=== PATIENT | female | born 1965 | race Caucasian/White ===

== ENCOUNTER 2022-06-18 13:01 | Inpatient (IN) ==
[2022-06-18 14:42] LABS: Basophils # (auto) 0.03 K/uL (0-0.2); Basophils % (auto) 0.3 %; Eosinophils # (auto) 0.16 K/uL (0-0.50); Eosinophils % (auto) 1.6 %; Hematocrit (blood only) 41.7 % (34.1-44.9); Immature Granulocytes # (auto) 0.03 K/uL (0.00-0.02); Immature Granulocytes % (auto) 0.3 %; Lymphocytes # (auto) 1.53 K/uL (1.2-3.4); Lymphocytes % (auto) 15.1 %; Mean Corpuscular Hemoglobin 31.4 pg (25.0-34.0); Mean Corpuscular Hgb Conc 33.6 g/dL (32.0-36.0); Mean Corpuscular Volume 93.5 fL (80.0-100.0); Mean Platelet Volume 10.1 fL (9.4-12.3); Monocytes # (auto) 0.88 K/uL (0.24-0.82); Monocytes % (auto) 8.7 %; Platelet Count 286 K/uL (130-400); RDW Coefficient of Variation 12.4 % (11.5-14.5); RDW Standard Deviation 42.8 fL (36.4-46.3); Red Blood Count 4.46 M/uL (3.93-5.22); White Blood Count 10.13 K/ul (4.8-10.8)
[2022-06-18 14:54] LABS: Appearance Urine Clear (Clear); Bacteria Urine Automated Negative (Negative); Bilirubin Urine Negative (Negative); Blood Urine Negative (Negative); Color Urine Yellow; Glucose Urine UA Negative (Negative); Ketones Urine Trace (Negative); Leukocyte Esterase Urine 1+ (Negative); Nitrite Urine Negative (Negative); Protein Urine Negative (Negative); RBC Urine Automated 0-4 /hpf (0-4); Specific Gravity Urine 1.019 (1.000-1.030); Urobilinogen Urine Negative (Negative)
[2022-06-18 15:15] LABS: Albumin Globulin Ratio 1.8 (0.9-2); BUN Creatinine Ratio 17.8 (10-20); Bilirubin,Total 0.9 mg/dl (0.2-1.0); Calcium 10.3 mg/dl (8.5-10.1); Creatinine Clr Calc Pharmacy 62.1 ml/min; Est GFR (African American) 82.3 ml/min; Globulin 2.8 gm/dl (2.5-4.0); Potassium 3.8 mmol/L (3.5-5.1); Total Protein 7.8 gm/dl (6.0-8.3)
--- NOTE | 2022-06-18 15:46 | Emergency Department Note ---
Impression & Plan Acute upper abdominal pain, Elevated LFTs, Acute pancreatitis ED Provider Note INFORMANT: Patient ED PROVIDER(S): Mika Ball MD CHIEF COMPLAINT: Abdominal pain PLAN: Disposition: Admitted Condition: Good Outpatient prescription management: none Referral: None MEDICAL DECISION MAKING: Patient presented because of abdominal pain. Blood work revealed an elevated lipase consistent with pancreatitis. She also had findings of elevated LFTs concerning for an obstructive process. Patient had a CT scan of the abdomen pelvis performed. Prior cholecystectomy noted. No acute pathology was found per radiology. Patient was hydrated with lactated Ringer's. I did discuss case with Dr. Smith The patient of gastroenterology. He recommended ultrasound imaging, admission, and consultation in the hospital.[facility]. Patient was evaluated in the ER for further management. Triage Nursing notes reviewed and agree them. Vital Signs: reviewed and remarkable for no significant abnormalities Differential diagnosis: PUD, pancreatitis, biliary pathology, appendicitis, infections, diverticulitis, UTI, obstruction, mesenteric ischemia, aortic pathology, inflammatory bowel disease, renal colic, hernia, volvulus, constipation, as well as other pathologies. Diagnostics interpreted by me: ECG: none Cardiac Monitoring: Cardiac monitoring ordered by me: The patient was placed on continuous cardiac monitoring and observed. It revealed a normal sinus rhythm at 80 beats per minute without ectopy or evidence of dysrhythmia. Imaging studies: CT scan as noted below. HPI: The patient is a 56 year old female who presents to the Emergency Room with complaints of upper abdominal pain. This started last night and is in the epigastrium. The patient also notes the following associated symptoms, some mild nausea. The patient has taken no medication for relieving factors. Current pain is rated as 5/10. Patient has history of cholecystectomy. She is unsure of the etiology. Patient saw her PCP, Dr. Rodriguez and was referred to the ER due to concerns about the pain. Pt denies LOC, headache, fevers, chills, diaphoresis, visual changes, neck pain, chest pain, breathing difficulties, vomiting, back pain, melena, hematochezia, urinary symptoms, numbness, weakness, lymphadenopathy, rash, or other complaints. ROS: See above HPI for pertinent positives & negatives. A total of 10 systems reviewed and were otherwise negative. PAST MEDICAL HISTORY:See Below , depression PAST SURGICAL HISTORY:See Below, FAMILY HISTORY:See Below SOCIAL HISTORY:See Below, non-smoker HOME MEDICATIONS:See Below ALLERGIES:See Below VITALS:See Below PHYSICAL EXAMINATION: GENERAL: Awake, alert, well-appearing, in no distress HENT: Normocephalic, atraumatic. Oropharynx unremarkable. EYES: Normal conjunctiva. Sclera non-icteric. NECK: Inspection normal. Non-tender. Supple. No nuchal rigidity. FROM. No masses. RESPIRATORY: Clear to auscultation. No wheezes. No rales. Normal respiratory effort. CARDIAC: Normal rate. Normal rhythm. No murmurs. No rubs. Extremities warm and well perfused. Pulses equal. No JVD. GI: Soft, non-distended. No tenderness to palpation. No rebound or guarding. No masses. RECTAL: Deferred. MUSCULOSKELETAL: Atraumatic. Chest examination reveals no tenderness. The back is symmetrical on inspection without obvious abnormality. There is no CVA tenderness to palpation. No joint edema. LOWER EXTREMITIES: Calves are equal size bilaterally and non-tender. No edema. No discoloration. NEURO: Normal sensorium. No sensory or motor deficits noted. SKIN: No rash or jaundice noted. Mika Ball MD Past Med/Surg History Medical History Depression Osteopenia Sensorineural hearing loss of both ears Mild HF SNHL; wears hearing aids TMJ (dislocation of temporomandibular joint) Surgical History History of cholecystectomy Family History Father Myocardial infarction Parkinson's disease Grandfather (Paternal) Myocardial infarction Grandmother (Paternal) Myocardial infarction Cancer Mother Hypertension Dyslipidemia Denies family history of Ovarian cancer Prostate cancer Breast cancer Colorectal cancer Social History Smoking Status: Never smoker Tobacco Type: Cigarettes Second Hand Exposure: No; Do You Dip or Chew Tobacco: No; Tobacco Cessation Education Requested by Patient: No Hx Alcohol Use: No Hx Substance Use: No Preferred Language: Ivorian Communication Ability: Effective Visual Impairment: No Limitations Hearing Ability: Use of Hearing Aid Beater Boss Required: No Beliefs That Will Affect Care: None marital status: Current Living Situation: Spouse current occupational status: employed 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 Other Information That Helps Us Care for You: No Feels Safe at Home: Yes Safety Concerns: Feels Safe At This Time Childhood Exposure to Second-Hand Smoke: Yes caffeine: No during the past year weight has: remained stable Dental Care, Regularly: Yes Physical Activity Frequency: Daily Seatbelt Use: always Sunscreen Use: Yes Assistive Devices: None Allergies Allergies Allergy/AdvReac Type Severity Reaction Status Date / Time Sulfa (Sulfonamide AdvReac Mild Stomach Verified 06/18/22 10:12 Antibiotics) upset Home Meds Previous Rx's Medication Instructions Recorded calcium carb-vit D3-minerals 600 1 tab PO BID #60 tabs 11/27/21 mg calcium-400 unit tablet fluvoxamine 50 mg tablet 50 mg PO DAILY #90 tabs 11/27/21 spironolactone 100 mg tablet 100 mg PO DAILY acne #90 tabs 11/27/21 bupropion HCl 150 mg tablet,12 hr 150 mg PO BID #180 ea 03/25/22 sustained-release quetiapine 100 mg tablet 100 mg PO DAILY #90 tabs 04/24/22 Results & Data (ED) Vital Signs Vital Signs - 24 hr 06/18/22 13:14 06/18/22 16:00 06/18/22 17:25 Temperature 36.8 C Temperature Source Temporal Artery Scan Pulse Rate 80 72 76 Respiratory Rate 16 13 16 Respiratory Effort / Characteristics Non-Labored Respiratory Depth Normal Blood Pressure 115/81 117/77 108/70 Blood Pressure Mean 92 90 82 Pulse Oximetry 98 100 100 Oxygen Delivery Method Room Air Sepsis Recent Fever Within 48 Hours No Sepsis New/Unexplained Change in Mental Status No Sepsis Action Taken by Nursing No Action Required 06/18/22 17:30 Temperature Temperature Source Pulse Rate 82 Respiratory Rate 17 Respiratory Effort / Characteristics Respiratory Depth Blood Pressure 104/69 Blood Pressure Mean 80 Pulse Oximetry 98 Oxygen Delivery Method Sepsis Recent Fever Within 48 Hours Sepsis New/Unexplained Change in Mental Status Sepsis Action Taken by Nursing Laboratory Data Result diagrams: 06/18/22 14:30 06/18/22 14:30 Lab Results 06/18/22 06/18/22 06/18/22 Range/Units 14:30 14:30 14:30 WBC 10.13 (4.8-10.8) K/ul RBC 4.46 (3.93-5.22) M/uL Hgb 14.0 (12.0-16.0) g/dl Hct 41.7 (34.1-44.9) % MCV 93.5 (80.0-100.0) fL MCH 31.4 (25.0-34.0) pg MCHC 33.6 (32.0-36.0) g/dL RDW Std Deviation 42.8 (36.4-46.3) fL RDW Coeff of Ann Marie 12.4 (11.5-14.5) % Plt Count 286 (130-400) K/uL MPV 10.1 (9.4-12.3) fL Immature Gran % (Auto) 0.3 % Neut % (Auto) 74.0 % Lymph % (Auto) 15.1 % Republic % (Auto) 8.7 % Eos % (Auto) 1.6 % Baso % (Auto) 0.3 % Neut # (Auto) 7.50 H (1.4-6.5) K/uL Lymph # (Auto) 1.53 (1.2-3.4) K/uL Republic # (Auto) 0.88 H (0.24-0.82) K/uL Eos # (Auto) 0.16 (0-0.50) K/uL Baso # (Auto) 0.03 (0-0.2) K/uL Immature Gran # (Auto) 0.03 H (0.00-0.02) K/uL Sodium 140 (136-145) mmol/L Potassium 3.8 (3.5-5.1) mmol/L Chloride 103 (98-107) mmol/L Carbon Dioxide 31 (21-32) mmol/L Anion Gap 6 (3-11) BUN 16 (6-23) mg/dl Creatinine 0.90 (0.6-1.2) mg/dl Est Cr Clr Drug Dosing 62.1 ml/min Est GFR ( Amer) 82.3 ml/min Est GFR (Non-Af Amer) 71.0 ml/min BUN/Creatinine Ratio 17.8 (10-20) Glucose 97 (70-99(Fasting)) mg/dl Calcium 10.3 H (8.5-10.1) mg/dl Total Bilirubin 0.9 (0.2-1.0) mg/dl AST 243 H (13-39) U/L ALT 185 H (7-52) U/L Alkaline Phosphatase 106 H (34-104) U/L Total Protein 7.8 (6.0-8.3) gm/dl Albumin 5.0 (3.4-5.0) gm/dl Globulin 2.8 (2.5-4.0) gm/dl Albumin/Globulin Ratio 1.8 (0.9-2) Lipase 479 H (11-82) U/L Urine Color Yellow Urine Appearance Clear (Clear) Urine pH 7.0 (4.5-7.5) Ur Specific [place] 1.019 (1.000-1.030) Urine Protein Negative (Negative) Urine Glucose (UA) Negative (Negative) Urine Ketones Trace H (Negative) Urine Blood Negative (Negative) Urine Nitrite Negative (Negative) Urine Bilirubin Negative (Negative) Urine Urobilinogen Negative (Negative) Ur Leukocyte Esterase 1+ H (Negative) Urine WBC (Auto) 1-5 (0-5) /hpf Urine RBC (Auto) 0-4 (0-4) /hpf U Hyaline Cast (Auto) 1-5 (0-5) /lpf U Epithel Cells (Auto) 10-20 H (0-5) /lpf Urine Bacteria (Auto) Negative (Negative) SARS-CoV-2, RNA, NAAT (NEGATIVE) 06/18/22 Range/Units 17:29 WBC (4.8-10.8) K/ul RBC (3.93-5.22) M/uL Hgb (12.0-16.0) g/dl Hct (34.1-44.9) % MCV (80.0-100.0) fL MCH (25.0-34.0) pg MCHC (32.0-36.0) g/dL RDW Std Deviation (36.4-46.3) fL RDW Coeff of Ann Marie (11.5-14.5) % Plt Count (130-400) K/uL MPV (9.4-12.3) fL Immature Gran % (Auto) % Neut % (Auto) % Lymph % (Auto) % Republic % (Auto) % Eos % (Auto) % Baso % (Auto) % Neut # (Auto) (1.4-6.5) K/uL Lymph # (Auto) (1.2-3.4) K/uL Republic # (Auto) (0.24-0.82) K/uL Eos # (Auto) (0-0.50) K/uL Baso # (Auto) (0-0.2) K/uL Immature Gran # (Auto) (0.00-0.02) K/uL Sodium (136-145) mmol/L Potassium (3.5-5.1) mmol/L Chloride (98-107) mmol/L Carbon Dioxide (21-32) mmol/L Anion Gap (3-11) BUN (6-23) mg/dl Creatinine (0.6-1.2) mg/dl Est Cr Clr Drug Dosing ml/min Est GFR ( Amer) ml/min Est GFR (Non-Af Amer) ml/min BUN/Creatinine Ratio (10-20) Glucose (70-99(Fasting)) mg/dl Calcium (8.5-10.1) mg/dl Total Bilirubin (0.2-1.0) mg/dl AST (13-39) U/L ALT (7-52) U/L Alkaline Phosphatase (34-104) U/L Total Protein (6.0-8.3) gm/dl Albumin (3.4-5.0) gm/dl Globulin (2.5-4.0) gm/dl Albumin/Globulin Ratio (0.9-2) Lipase (11-82) U/L Urine Color Urine Appearance (Clear) Urine pH (4.5-7.5) Ur Specific [place] (1.000-1.030) Urine Protein (Negative) Urine Glucose (UA) (Negative) Urine Ketones (Negative) Urine Blood (Negative) Urine Nitrite (Negative) Urine Bilirubin (Negative) Urine Urobilinogen (Negative) Ur Leukocyte Esterase (Negative) Urine WBC (Auto) (0-5) /hpf Urine RBC (Auto) (0-4) /hpf U Hyaline Cast (Auto) (0-5) /lpf U Epithel Cells (Auto) (0-5) /lpf Urine Bacteria (Auto) (Negative) SARS-CoV-2, RNA, NAAT NEGATIVE (NEGATIVE) Administered Medications Lactated Ringer's (Lr) 1,000 mls @ 125 mls/hr IV .Q8H FLORINDA Stop: 07/18/22 21:10 Last Admin: 06/18/22 21:41 Dose: 125 mls/hr Documented By: JANELLE Discontinued Medications Lactated Ringer's (Lr) 1,000 mls @ 200 mls/hr IV .Q5H FLORINDA Stop: 07/18/22 15:59 Last Infusion: 06/18/22 21:34 Dose: 0 mls/hr Documented By: Admin: 06/18/22 16:01 Dose: 200 mls/hr Documented By: ANTONIO Ioversol (Optiray 350 100ml) 85 ml IV ONCE ONE Stop: 06/18/22 16:12 Last Admin: 06/18/22 16:18 Dose: 85 ml Documented By: SUMA Imaging Data Radiologist's Impression: Abdomen/Pelvis CT 06/18/22 15:[address] WITH IV CONTRAST CT DOSE: 268.17 mGy.cm HISTORY: Upper abd pain, elevated LFTs/lipase, prior ravi TECHNIQUE: Multiaxial CT images of the abdomen and pelvis were performed following the use of intravenous contrast. A dose lowering technique was utilized adhering to the principles of ALARA. COMPARISON STUDY: None. FINDINGS: The lung bases are clear. No pneumoperitoneum. No pneumatosis. No fractures within the visualized osseous structures. Prior cholecystectomy. This likely accounts for the mild central intrahepatic bile duct dilatation. Normal caliber common bile duct measuring up to 6 mm. A 3 mm hypodense lesion within the right hepatic lobe is technically too small to characterize but favors a cyst. The main portal vein is patent. The pancreas, spleen, and adrenal glands are unremarkable. There is a 1.5 cm cyst within the left kidney. Normal right kidney. No hydronephrosis. No retroperitoneal lymphadenopathy. There is a left circumaortic renal vein. The bladder is not well-distended but appears unremarkable. The uterus and bilateral adnexa are within normal limits. No significant pelvic free fluid. Moderate well-formed stool within the colon. No bowel wall thickening or obstruction. Normal appendix. IMPRESSION: 1. Prior cholecystectomy. This likely accounts for the mild central intrahepatic bile duct dilatation. 2. No bowel wall thickening or obstruction. 3. Normal appendix. 4. No hydronephrosis. ACT 112: Negative or not required by law. Electronically signed by: Tao Rios M.D. 06/18/2022 4:30 PM Liver Ultrasound 06/18/22 17:05 . ABDOMINAL ULTRASOUND, RIGHT UPPER QUADRANT HISTORY: elevated lfts, prior cholecystectomy. COMPARISON: Abdomen and pelvis CT 06/18/2022. FINDINGS: Pancreas: The pancreas demonstrates a normal echotexture. Liver: Unremarkable. Gallbladder: The gallbladder is surgically absent. CBD: 6 mm. Right kidney: No hydronephrosis. IMPRESSION: Prior cholecystectomy. Otherwise, no significant abnormality identified within the right upper quadrant. ACT 112: Negative or not required by law. Electronically signed by: Tao Rios M.D. 06/18/2022 7:13 PM Discharge Plan Visit Data Chief Complaint: Abdominal Pain Stated Complaint: ABDOMINAL PAIN,NAUSEA, LIGHTHEADE SINCE LAST NIGHT ED Provider: Mika Ball Discharge Problem: Acute upper abdominal pain, Elevated LFTs, Acute pancreatitis Patient Disposition: Admitted As Inpatient Discharge Instructions Interventions: ED Discharge Assessment Last Done: 06/18/22 20:49
[2022-06-18] MEDS: LACTATED RINGER'S 1,000 ML IV SCH ×3 (16:01→22:28)
[2022-06-18] MEDS ORDERED: OPTIRAY 350 100ml IV ONE (16:11)
--- NOTE | 2022-06-18 16:31 | CT Scan Report ---
ABDOMEN AND PELVIS CT WITH IV CONTRAST CT DOSE: 268.17 mGy.cm HISTORY: Upper abd pain, elevated LFTs/lipase, prior ravi TECHNIQUE: Multiaxial CT images of the abdomen and pelvis were performed following the use of intrave nous contrast. A dose lowering technique was utilized adhering to the principles of ALARA. COMPARISON STUDY: None. FINDINGS: The lung bases are clear. No pneumoperitoneum. No pneumatosis. No fractures within the visu alized osseous structures. Prior cholecystectomy. This likely accounts for the mild central intrahepa tic bile duct dilatation. Normal caliber common bile duct measuring up to 6 mm. A 3 mm hypodense lesi on within the right hepatic lobe is technically too small to characterize but favors a cyst. The main portal vein is patent. The pancreas, spleen, and adrenal glands are unremarkable. There is a 1.5 cm cyst within the left kidney. Normal right kidney. No hydronephrosis. No retroperitoneal lymphadenopat hy. There is a left circumaortic renal vein. The bladder is not well-distended but appears unremarkab le. The uterus and bilateral adnexa are within normal limits. No significant pelvic free fluid. Moder ate well-formed stool within the colon. No bowel wall thickening or obstruction. Normal appendix. IMPRESSION: 1. Prior cholecystectomy. This likely accounts for the mild central intrahepatic bile duct dilatation . 2. No bowel wall thickening or obstruction. 3. Normal appendix. 4. No hydronephrosis. ACT 112: Negative or not required by law. Electronically signed by: Tao Rios M.D. 06/18/2022 4:30 PM
--- NOTE | 2022-06-18 17:56 | History & Physical Report ---
Date of Service June 18, 2022 Assessment & Plan (1) Acute pancreatitis: Plan: - Lipase elevated to 479, AST 243, ALT 185. - CTAP: S/p cholecystectomy, mild central intrahepatic duct dilation, small lesion noted on liver consistent with cyst. - RUQ U/S pending. - No history of alcohol use, is s/p cholecystectomy, only mildly hypercalcemic. Suspect secondary to gallstone. - GI consulted, appreciate recommendations and assistance. Plan for EUS/ERCP, defer on MRCP unless otherwise specified by GI after review of U/S. - LRs 200 cc/hr x 1 L then decrease rate to 125cc/hr. - NPO for potential EUS/ERCP, likely will be able to eat after procedure/advance diet as tolerated as pain is controlled. (2) Elevated LFTs: Plan: - As above. (3) Depression: Plan: - Holding PO meds. 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 Plan - Admit to med/surg. - SCDs for VTE ppx. - Full Code. History of Present Illness Chief Complaint: upper abdominal pain x 1 day Primary Care Provider: SUZE Oliva Tonya Harrell is a 56-year-old female with past medical history significant for depression, s/p cholecystectomy who presents today with abdominal pain. Yesterday afternoon, she began experiencing upper abdominal/epigastric pain that radiated to her back, at its worst was 10/10 and stabbing in nature. It is associated with nausea, no vomiting, and minimal diarrhea yesterday that was kelly colored. No fever or chills. She has been able to eat over the past 24 hours, but does note that it makes her pain worse after doing so. Pain has waxed and waned over the course of the past day, she saw her PCP today who sent her to the ED for further evaluation with concern for pancreatitis. She does not smoke or use recreational drugs, and drinks alcohol very rarely, less than once per month. She has never had pancreatitis before. Upon presentation, vital signs are stable and within normal limits. Labs remarkable for AST 243, ALT 185, alk phos 106, lipase 479, all acutely elevated. Without white count, renal function at baseline, no electrolyte abnormalities, urine does not appear infected. CT of the abdomen and pelvis shows she had a prior cholecystectomy, mild central intrahepatic bile duct dilatation, CBD measuring 6 mm, there is a 3 mm hypodense lesion on the right hepatic lobe, 1.5 mm cyst on left kidney, no bowel wall thickening or obstruction, appendix appears normal. Allergies Allergy/AdvReac Type Severity Reaction Status Date / Time Sulfa (Sulfonamide AdvReac Mild Stomach Verified 06/18/22 10:12 Antibiotics) upset Home Medications Medication Instructions Recorded Confirmed Type calcium carb-vit D3-minerals 600 1 tab PO BID #60 tabs 11/27/21 06/18/22 Rx mg calcium-400 unit tablet fluvoxamine 50 mg tablet 50 mg PO DAILY #90 tabs 11/27/21 06/18/22 Rx spironolactone 100 mg tablet 100 mg PO DAILY acne #90 tabs 11/27/21 06/18/22 Rx bupropion HCl 150 mg tablet,12 hr 150 mg PO BID #180 ea 03/25/22 06/18/22 Rx sustained-release quetiapine 100 mg tablet 100 mg PO DAILY #90 tabs 04/24/22 06/18/22 Rx Past Med/Surg History Medical History Depression Osteopenia Sensorineural hearing loss of both ears Mild HF SNHL; wears hearing aids TMJ (dislocation of temporomandibular joint) Surgical History History of cholecystectomy Family History Father Myocardial infarction Parkinson's disease Grandfather (Paternal) Myocardial infarction Grandmother (Paternal) Myocardial infarction Cancer Mother Hypertension Dyslipidemia Denies family history of Ovarian cancer Prostate cancer Breast cancer Colorectal cancer Social History Smoking Status: Never smoker Tobacco Type: Cigarettes Second Hand Exposure: No; Hx Alcohol Use: Yes Alcohol type: hard liquor Alcohol Intake Frequency: 2-4 x/ Month Hx Substance Use: No Preferred Language: Bahamian Communication Ability: Effective Visual Impairment: No Limitations Hearing Ability: Use of Hearing Aid Graphic Technician Required: No marital status: Current Living Situation: Spouse current occupational status: employed 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 Feels Safe at Home: Yes Childhood Exposure to Second-Hand Smoke: Yes caffeine: No during the past year weight has: remained stable Dental Care, Regularly: Yes Physical Activity Frequency: Daily Seatbelt Use: always Sunscreen Use: Yes Assistive Devices: Glasses, Hearing Aid - Left and Hearing Aid - Right Review of Systems Review of Systems: Review of systems: Constitutional: No fever/chills, weakness, fatigue, myalgias, anorexia, night sweats Eyes: No diplopia, no worsening or blurred vision ENT: normal hearing, no trouble swallowing Respiratory: No cough, sputum, dyspnea at rest or on exertion Cardiovascular: No chest pain, tightness or palpitations Abdomen: upper abdominal pain w/ radiation to back, associated nausea and kelly soft stools x 1 day; no vomiting, diarrhea or constipation : Denies dysuria, hematuria, increased urgency/frequency, urinary retention Musculoskeletal: No joint pain, calf pain, swelling Neurologic: No weakness, numbness/tingling, or balance problems Psychiatric: No anxiety or depression Skin: No rash or itch Physical Exam Physical Exam: General: awake, alert, no apparent distress Head: Normocephalic, atraumatic ENT: PERRL, EOMI, no pharyngeal exudate, mucous membranes moist Chest: Clear to auscultation, on room air, no adventitious breath sounds Cardiac: Regular rate and rhythm, no murmur, no JVD, normal peripheral pulses, good capillary refill Abdominal: TTP in epigastrium; NABS x 4 quadrants, soft, nontender to palpation, no rebound, guarding or tenderness Extremities: Normal inspection, no peripheral edema or erythema, calfs nontender to palpation Psych: Normal mood and affect Neuro: AAO x 3, strength intact bilaterally and rated 5/5, no motor deficits, speech is clear, no peripheral sensory deficits Skin: no rash or erythema Results & Data Results & Data ([facility]) Vital Signs (Past 12 Hours) Vital Signs Temp Pulse Resp BP Pulse Ox O2 Del Method 06/18/22 17:30 82 17 104/69 98 06/18/22 17:25 76 16 108/70 100 06/18/22 16:00 72 13 117/77 100 06/18/22 13:14 36.8 C 80 16 115/81 98 Room Air Laboratory Results Abnormal lab results 06/18/22 06/18/22 06/18/22 Range/Units 14:30 14:30 14:30 Neut # (Auto) 7.50 H (1.4-6.5) K/uL Mellette # (Auto) 0.88 H (0.24-0.82) K/uL Immature Gran # (Auto) 0.03 H (0.00-0.02) K/uL Calcium 10.3 H (8.5-10.1) mg/dl AST 243 H (13-39) U/L ALT 185 H (7-52) U/L Alkaline Phosphatase 106 H (34-104) U/L Lipase 479 H (11-82) U/L Urine Ketones Trace H (Negative) Ur Leukocyte Esterase 1+ H (Negative) U Epithel Cells (Auto) 10-20 H (0-5) /lpf Diagnostic Findings Abdomen/Pelvis CT 06/18/22 15:[address] WITH IV CONTRAST CT DOSE: 268.17 mGy.cm HISTORY: Upper abd pain, elevated LFTs/lipase, prior ravi TECHNIQUE: Multiaxial CT images of the abdomen and pelvis were performed following the use of intravenous contrast. A dose lowering technique was utilized adhering to the principles of ALARA. COMPARISON STUDY: None. FINDINGS: The lung bases are clear. No pneumoperitoneum. No pneumatosis. No fractures within the visualized osseous structures. Prior cholecystectomy. This likely accounts for the mild central intrahepatic bile duct dilatation. Normal caliber common bile duct measuring up to 6 mm. A 3 mm hypodense lesion within the right hepatic lobe is technically too small to characterize but favors a cyst. The main portal vein is patent. The pancreas, spleen, and adrenal glands are unremarkable. There is a 1.5 cm cyst within the left kidney. Normal right kidney. No hydronephrosis. No retroperitoneal lymphadenopathy. There is a left circumaortic renal vein. The bladder is not well-distended but appears unremarkable. The uterus and bilateral adnexa are within normal limits. No significant pelvic free fluid. Moderate well-formed stool within the colon. No bowel wall thickening or obstruction. Normal appendix. IMPRESSION: 1. Prior cholecystectomy. This likely accounts for the mild central intrahepatic bile duct dilatation. 2. No bowel wall thickening or obstruction. 3. Normal appendix. 4. No hydronephrosis. ACT 112: Negative or not required by law. Electronically signed by: Tao Rios M.D. 06/18/2022 4:30 PM Code Status & VTE Plan Code Status Full Code. Supervising Physician Co-Signing Physician Notes Patient seen and examined, chart reviewed, case discussed with Ping Brown PA-C and I agree with the assessment and plan as above except as otherwise noted Labs and images reviewed Tonya is a 56-year-old female with a past medical history of cholecystectomy who presents with upper abdominal pain and elevated LFTs and who was recommended for admission for acute pancreatitis. She has no leukocytosis, hemoglobin is 14, NLR less than 5, sodium is normal, potassium is normal, creatinine is normal at baseline and 0.90 on admission. Triglyceride level pending, mild hypercalcemia to 10.3. AST acutely elevated to 243, ALT acutely elevated to 185, alk phos acutely elevated to 106, total bilirubin is normal, lipase is 479. COVID is pending. Abdominal CT shows prior cholecystectomy with postoperative mild central intrahepatic bile duct dilation. Normal appendix, no bowel wall thickening or obstruction, no hydronephrosis. 3 mm hypodense lesion of the right hepatic lobe too small to characterize but favoring a cyst, 1.5 cm left kidney cyst. No free pelvic fluid. Patient has had 1 night of epigastric pain/upper abdominal pain 5/10. Was referred to the ER by her PCP. Has not had any vomiting, diarrhea, fever, chills. At bedside assessment she reports her pain is "tolerable" and in the epigastrium. Continues to have no fever/chills. TTP at the epigastrium. Breathing is unlabored, heart rate is regular. Acute Pancreatitis: Discussed with ER/GI. Recommended deferring MRCP, obtain ultrasound. GI will reassess in a.m. N.p.o. with IV FM, analgesia as above. No history of alcohol use. Mild hypercalcemia with borderline BUN/creatinine ratio, low suspicion for hypercalcemia induced given concurrent transaminitis suspect stone as etiology. Continue LR, given mild pancreatitis with borderline normal BUN/Cr ratio will decrease rate from 200/hr after 1 bag to 125cc/hr (still >1.5cc/kg/kr). PG Care Time/CCT Total # of Minutes Spent Total Time Spent with Patient: Total time spent is greater than 50% in coordination of care (as documented) at patient's floor/unit and/or counseling patient: Coding Level of Care Code 16039 Initial Inpt Care Lvl 3 Diagnoses Acute pancreatitis K85.90 Elevated LFTs R79.89 Depression F32.A
--- NOTE | 2022-06-18 19:15 | Ultrasound Report ---
. ABDOMINAL ULTRASOUND, RIGHT UPPER QUADRANT HISTORY: elevated lfts, prior cholecystectomy. COMPARISON: Abdomen and pelvis CT 06/18/2022. FINDINGS: Pancreas: The pancreas demonstrates a normal echotexture. Liver: Unremarkable. Gallbladder: The gallbladder is surgically absent. CBD: 6 mm. Right kidney: No hydronephrosis. IMPRESSION: Prior cholecystectomy. Otherwise, no significant abnormality identified within the right upper quadra nt. ACT 112: Negative or not required by law. Electronically signed by: Tao Rios M.D. 06/18/2022 7:13 PM
[2022-06-18] MEDS ORDERED: ACETAMINOPHEN 1,000 MG/100 ML VIAL IV PRN (21:11)
[2022-06-18] MEDS ORDERED: ONDANSETRON INJ 2 MG/ML 2 ML VIAL IV PRN (21:11)
[2022-06-18] MEDS ORDERED: POLYETHYLENE (MIRALAX) 17 GM PACK PO PRN (21:11)
[2022-06-18] MEDS ORDERED: MoRPHine SULFATE 2 MG/ML CARP IV PRN (21:11)
[2022-06-18] MEDS ORDERED: MoRPHine SULFATE 4 MG/ML 1 ML CARP\\VIAL IV PRN (21:11)
[2022-06-18] MEDS ORDERED: KETOROLAC TROMETHAMINE 15 MG/ML VIAL IV PRN (21:11)
[2022-06-18] MEDS ORDERED: PNEUMOCOCCAL POLYSACCHARIDES 25 MCG/0.5 ML VIAL/SYR IM ONE (21:31)
[2022-06-19] MEDS: LACTATED RINGER'S 1,000 ML IV SCH ×2 (06:00→16:36)
[2022-06-19] MEDS ORDERED: CIPROFLOXACIN / D5W 400 MG/200 ML BAG IV SCH (06:00)
[2022-06-19 07:16] LABS: Basophils # (auto) 0.05 K/uL (0-0.2); Basophils % (auto) 0.8 %; Eosinophils % (auto) 5.1 %; Hematocrit (blood only) 36.4 % (34.1-44.9); Hemoglobin 12.2 g/dl (12.0-16.0); Immature Granulocytes # (auto) 0.02 K/uL (0.00-0.02); Immature Granulocytes % (auto) 0.3 %; Lymphocytes # (auto) 1.17 K/uL (1.2-3.4); Lymphocytes % (auto) 19.7 %; Mean Corpuscular Hemoglobin 31.4 pg (25.0-34.0); Mean Corpuscular Hgb Conc 33.5 g/dL (32.0-36.0); Mean Corpuscular Volume 93.6 fL (80.0-100.0); Mean Platelet Volume 10.4 fL (9.4-12.3); Monocytes # (auto) 0.55 K/uL (0.24-0.82); Monocytes % (auto) 9.3 %; Neutrophils # (auto) 3.84 K/uL (1.4-6.5); Neutrophils % (auto) 64.8 %; Platelet Count 242 K/uL (130-400); RDW Coefficient of Variation 12.4 % (11.5-14.5); RDW Standard Deviation 42.6 fL (36.4-46.3); Red Blood Count 3.89 M/uL (3.93-5.22); White Blood Count 5.93 K/ul (4.8-10.8)
[2022-06-19 07:54] LABS: Total Protein 6.2 gm/dl (6.0-8.3)
[2022-06-19 07:55] LABS: Albumin Globulin Ratio 1.7 (0.9-2); Albumin Level 3.9 gm/dl (3.4-5.0); BUN Creatinine Ratio 14.6 (10-20); Bilirubin,Total 0.7 mg/dl (0.2-1.0); Calcium 8.8 mg/dl (8.5-10.1); Chol HDL Ratio 2.3 (0-5); Creatinine Clr Calc Pharmacy 68.1 ml/min; Est GFR (African American) 92.1 ml/min; Est GFR (Non-African American) 79.4 ml/min; Globulin 2.3 gm/dl (2.5-4.0); Magnesium 1.8 mg/dl (1.7-2.4); Potassium 3.9 mmol/L (3.5-5.1)
--- NOTE | 2022-06-19 08:45 | Gastrointestinal Consultation ---
Date of Consultation June 19, 2022 Assessment & Plan (1) Elevated LFTs: (2) Acute pancreatitis: Pt is a 56 yo female w symptoms of epigastric abd pain radiating bilateral sides to back, similar to pain prior to her cholecystectomy, associated with nausea wo vomiting. Found to have elevated LFTs and lipase. CT abd/pelvis and liver us wo acute findings, + mild biliary dilation at 6mm which was normal for s/p cholecystectomy. - Obtain acute hepatitis and AIH serologies - Keep NPO - Will discuss w Dr. Chung whether to obtain MRCP vs scheduling pt for EUS +/- ERCP - Trend LFTs - IVF support w LR - Symptomatic management Supervising Physician Co-Signing Physician Notes I performed a history and physical examination of the patient today, including specifically on physical exam - soft abdomen. I have discussed the patient's management with the advanced practitioner. Please refer to the nurse practitioner's note for the documented findings and plan of care. Suspected choledocholithiasis EUS/ERCP Patient was explained in detail regarding risks, benefits, limitations and alternatives of the above endoscopic procedure. Risks of intravenous sedation used for procedure were also explained. Risks include, but not limited to perforation, bleeding, infection, respiratory distress, cardiac arrest and . Patient is also aware about the possibility of missed lesion. Patient's questions were answered. The patient verbalized understanding the information and agreed to undergo the procedure. History of Present Illness Reason for Consultation: Pancreatitis , elevated LFTs Requesting Physician: Dr. Jus Rodriguez Attending Physician: Dr. Kashif Chung History of Present Illness Pt is a 56 yo female w PMHx of depression and s/p cholecystectomy who presented yesterday w c/o epigastric abd pain which started since 2 days ago. Epigastric pain radiates to bilateral sides to her back. She felt that it's similar to her pain prior to her cholecystectomy. Has associated nausea, no vomiting, no fever, chills. Had one episode of loose stools 2 days ago which was kelly colored per her report. Upon her evaluation ,noted to have no leukocytosis, normal H/H, chem panel including renal function. LFTs are elevated along w lipase: Tbili 0/7, AST 278, AST 289, Alk phose 118, Lipase 1473. CT abd/pelvis and liver us showed signs of mild biliary ductal dilation at 6mm, otherwise nothing acute. Pt denies any tobacco, recent ETOH uses nor marijuana products. No hx of illicit drug uses, tattoos or body piercing. No new meds or herbal supplements, nor using APAP at home. Denies family hx of liver diseases or autoimmune diseases Allergies Allergy/AdvReac Type Severity Reaction Status Date / Time Sulfa (Sulfonamide AdvReac Mild Stomach Verified 06/18/22 10:12 Antibiotics) upset Home Medications Medication Instructions Recorded Confirmed Type calcium carb-vit D3-minerals 600 1 tab PO BID #60 tabs 11/27/21 06/18/22 Rx mg calcium-400 unit tablet fluvoxamine 50 mg tablet 50 mg PO DAILY #90 tabs 11/27/21 06/18/22 Rx spironolactone 100 mg tablet 100 mg PO DAILY acne #90 tabs 11/27/21 06/18/22 Rx bupropion HCl 150 mg tablet,12 hr 150 mg PO BID #180 ea 03/25/22 06/18/22 Rx sustained-release quetiapine 100 mg tablet 100 mg PO DAILY #90 tabs 04/24/22 06/18/22 Rx Patient History Medical History Depression Osteopenia Sensorineural hearing loss of both ears Mild HF SNHL; wears hearing aids TMJ (dislocation of temporomandibular joint) Surgical History History of cholecystectomy Family History Father Myocardial infarction Parkinson's disease Grandfather (Paternal) Myocardial infarction Grandmother (Paternal) Myocardial infarction Cancer Mother Hypertension Dyslipidemia Denies family history of Ovarian cancer Prostate cancer Breast cancer Colorectal cancer Social History Smoking Status: Never smoker Tobacco Type: Cigarettes Second Hand Exposure: No; Do You Dip or Chew Tobacco: No; Tobacco Cessation Education Requested by Patient: No Hx Alcohol Use: No Hx Substance Use: No Preferred Language: French Communication Ability: Effective Visual Impairment: No Limitations Hearing Ability: Use of Hearing Aid Senior Cost Accountant Required: No Beliefs That Will Affect Care: None marital status: Current Living Situation: Spouse current occupational status: employed 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 Other Information That Helps Us Care for You: No Feels Safe at Home: Yes Safety Concerns: Feels Safe At This Time Childhood Exposure to Second-Hand Smoke: Yes caffeine: No during the past year weight has: remained stable Dental Care, Regularly: Yes Physical Activity Frequency: Daily Seatbelt Use: always Sunscreen Use: Yes Assistive Devices: None Review of Systems Review of Systems: All systems reviewed & are unremarkable except as noted in HPI & below Physical Exam Constitutional: WD/WN, vitals as above well groomed, cooperative and comfortable Eyes: PERRL, conjunctivae normal, anicteric sclerae ENMT: external ear and nose normal, oropharynx normal Respiratory: normal respiratory effort, lungs clear to auscultation Cardiovascular: RRR, no murmur, no edema Gastrointestinal (Abdomen): Hypoactive BS, non tender, soft Skin: no rashes, warm and dry no jaundice Psychiatric: A+Ox3, euthymic affect Lymphatic: no lymphedema Results & Data ([facility]) Vital Signs (Past 12 Hours) Vital Signs Temp Pulse Resp BP BP Pulse Ox O2 Del Method 06/19/22 07:05 37.1 C 66 16 101/64 98 Room Air 06/18/22 20:55 37.0 C 78 16 111/65 97 Room Air
[2022-06-19] MEDS ORDERED: INDOMETHACIN 50 MG SUPP PR ONE ×2 (10:07→14:28)
--- NOTE | 2022-06-19 13:05 | Hospitalist Progress Note ---
Date of Service June 19, 2022 Assessment & Plan (1) Acute pancreatitis: Plan: - CTAP: S/p cholecystectomy, mild central intrahepatic duct dilation, small lesion noted on liver consistent with cyst. - RUQ us indicates prior cholecystectomy, no other acute findings noted - No history of alcohol use, is s/p cholecystectomy, only mildly hypercalcemic. Suspect secondary to gallstone. - GI consulted, appreciate recommendations and assistance. - LRs 200 cc/hr x 1 L then decrease rate to 125cc/hr. - Continue NPO status with plans for early refeed as able - Appreciate GI input, plan for EUS v ERCP today with Dr. Chung - Plan to order diet following procedure (2) Elevated LFTs: Plan: - As above with interval increase since 06/18 labs (3) Depression: Plan: - Holding PO meds. - On Wellbutrin, fluvoxamine, seroquel at home, will resume as soon as able to take PO Plan As above. Plan d/w Dr. Rodriguez. Further orders as warranted. Admission and Anticipated Discharge Date Admission Date: June 18, 2022 Subjective Patient seen on daily rounds this morning. She is resting comfortably in bed, reports minimal abd pain. No n/v. She has h/o cholecystectomy in 2019. No known h/o gallstones. She denies h/o elevated triglycerides or heavy alcohol c onsumption. She has never had AP prior to this admission. Review of Systems Review of Systems: All systems reviewed and are unremarkable except as noted in HPI and below. Denies fever, chills, fatigue, headache, nasal congestion, sore throat, cough, chest pain, shortness of breath, palpitations, orthopnea, PND, n/v/d, constipation, dysuria, hematuria, frequency, back pain, joint pain or swelling, easy bruising or bleeding, skin lesions or rashes. Physical Exam Physical Exam: GENERAL: 56 yo Well-developed, well-nourished WF. NAD. LUNGS: Clear to auscultation bilaterally. No W/R/R. CARDIOVASCULAR: Regular rate and rhythm. ABDOMEN: Soft, mildly tender in epigastrium, non-distended. No palpable masses. BS normoactive x 4 quad. EXTREMITIES: No edema. Non-tender. Peripheral pulses +2/4. NEUROLOGIC: A&O x3. No focal neurological deficits. CN II-XII grossly intact. PSYCHIATRIC: Cooperative. Appropriate mood and affect. SKIN: Warm, dry, intact. No rashes or lesions. Results & Data Results & Data ([facility]) Vital Signs (Past 12 Hours) Vital Signs Temp Pulse Resp BP Pulse Ox O2 Del Method 06/19/22 07:05 37.1 C 66 16 101/64 98 Room Air Laboratory Results 06/19/22 06:48 06/19/22 06:48 PG Care Time/CCT Total # of Minutes Spent Total Time Spent with Patient: Total time spent is greater than 50% in coordination of care (as documented) at patient's floor/unit and/or counseling patient: Coding Level of Care Code 14685 Subseq Hosp Care Lvl 2 Diagnoses Acute pancreatitis K85.90 Elevated LFTs R79.89 Depression F32.A
--- NOTE | 2022-06-19 13:15 | Anesthesiology Consultation ---
Date of Service June 19, 2022 Assessment & Plan Chart Review Chart Review: Acceptable Risk for Surgery and Patient NOT seen in Pre Admission Testing Consults Requested none ASA ASA2 Proposed Anesthesia Anesthesia Type: General History Surgery Operation Date: 06/19/22 08:20 Proposed Procedures p Endoscopic Retrograde Cholangiopancreatogram - Kashif Chung MD s Endoscopic Ultrasonography Upper - Kashif Chung MD Height/Weight Height: 5 ft 5 in Weight: 57.8 kg Allergies Allergy/AdvReac Type Severity Reaction Status Date / Time Sulfa (Sulfonamide AdvReac Mild Stomach Verified 06/18/22 10:12 Antibiotics) upset Medications Home Medications Medication Instructions Recorded Confirmed Last Taken calcium carb-vit D3-minerals 600 1 tab PO BID #60 tabs 11/27/21 06/18/22 Unknown mg calcium-400 unit tablet fluvoxamine 50 mg tablet 50 mg PO DAILY #90 tabs 11/27/21 06/18/22 Unknown spironolactone 100 mg tablet 100 mg PO DAILY acne #90 tabs 11/27/21 06/18/22 Unknown bupropion HCl 150 mg tablet,12 hr 150 mg PO BID #180 ea 03/25/22 06/18/22 Unknown sustained-release quetiapine 100 mg tablet 100 mg PO DAILY #90 tabs 04/24/22 06/18/22 Unknown Active Medications Generic Name Dose Route Start Last Admin Trade Name Freq PRN Reason Stop Dose Admin Acetaminophen 1,000 mg in 100 mls @ 400 mls/hr 06/18/22 21:11 06/18/22 23:47 Ofirmev IV 06/21/22 21:10 Infused Q8H PRN Infusion Fever or Mild Pain Lactated Ringer's 1,000 mls @ 125 mls/hr 06/18/22 21:11 06/19/22 06:00 Lr IV 07/18/22 21:10 125 mls/hr .Q8H FLORINDA Administration Ketorolac Tromethamine 15 mg 06/18/22 21:11 06/19/22 05:59 Ketorolac Tromethamine 15 Mg/Ml Vial IV 06/23/22 21:10 15 mg Q6H PRN Administration Mild Pain Past Medical History Medical History Depression Osteopenia Sensorineural hearing loss of both ears Mild HF SNHL; wears hearing aids TMJ (dislocation of temporomandibular joint) Exercise / Class Metabolic Activity II 4-5 Yardwork/Stairs/Walk up hill Past Family History Family History Father Myocardial infarction Parkinson's disease Grandfather (Paternal) Myocardial infarction Grandmother (Paternal) Myocardial infarction Cancer Mother Hypertension Dyslipidemia Denies family history of Ovarian cancer Prostate cancer Breast cancer Colorectal cancer Past Surgical History Surgical History History of cholecystectomy Past Anesthesia History No Hx of Anesthesia Complications and No Family Hx of Anesthesia Complications History of PONV No Hx of PONV and No Hx of Motion Sickness Social History Smoking Status: Never smoker Do You Dip or Chew Tobacco: No Hx Alcohol Use: No Alcohol type: hard liquor Hx Substance Use: No Physical Exam Vital Signs Last Vital Signs Temp 37.1 C 06/19/22 07:05 Pulse 66 06/19/22 07:05 Resp 16 06/19/22 07:05 BP 101/64 06/19/22 07:05 Pulse Ox 98 06/19/22 07:05 O2 Del Method 06/19/22 07:05 Testing Laboratory Results 06/19/22 06:48 06/19/22 06:48 Urine Color Yellow 06/18/22 14:30 Urine Appearance Clear (Clear) 06/18/22 14:30 Urine pH 7.0 (4.5-7.5) 06/18/22 14:30 Ur Specific Mcallister 1.019 (1.000-1.030) 06/18/22 14:30 Urine Protein Negative (Negative) 06/18/22 14:30 Urine Glucose (UA) Negative (Negative) 06/18/22 14:30 Urine Ketones Trace (Negative) H 06/18/22 14:30 Urine Nitrite Negative (Negative) 06/18/22 14:30 Ur Leukocyte Esterase 1+ (Negative) H 06/18/22 14:30 Urine WBC (Auto) 1-5 /hpf (0-5) 06/18/22 14:30 Urine RBC (Auto) 0-4 /hpf (0-4) 06/18/22 14:30 U Hyaline Cast (Auto) 1-5 /lpf (0-5) 06/18/22 14:30 U Epithel Cells (Auto) 10-20 /lpf (0-5) H 06/18/22 14:30 Urine Bacteria (Auto) Negative (Negative) 06/18/22 14:30
[2022-06-19] MEDS ORDERED: fentaNYL citrate 100 MCG/2 ML VIAL IV PRN (13:45)
[2022-06-19] MEDS ORDERED: PROMETHAZINE HCL 12.5 MG in SODIUM CHLORIDE 0.9% 50 ML IV PRN (13:45)
[2022-06-19] MEDS ORDERED: ATROPINE SULFATE 0.1 MG/ML 10ML SYR IV PRN (13:45)
[2022-06-19] MEDS ORDERED: ONDANSETRON INJ 2 MG/ML 2 ML VIAL IV PRN (13:45)
[2022-06-19] MEDS ORDERED: LABETALOL HCL IV 5 MG/ML 20ML IV PRN (13:45)
[2022-06-19] MEDS ORDERED: NALOXONE HCL 0.4 MG/1 ML VIAL/CARP IV PRN (13:45)
[2022-06-19] MEDS ORDERED: ePHEDrine sulfate 50 MG/ML AMP IV PRN (13:45)
[2022-06-19] MEDS ORDERED: FLUMAZENIL 0.1 MG/1 ML 10 ML VIAL IV PRN (13:45)
--- NOTE | 2022-06-19 13:46 | Communication Note ---
Date of Service: June 19, 2022 06/19/[id number]@ [id number]
[2022-06-19] MEDS ORDERED: CIPROFLOXACIN 400MG / 200ML D5W IV ONE (14:05)
[2022-06-19] MEDS ORDERED: MIDAZOLAM HCL 1 MG/ML 2ML VIAL ONE (14:12)
[2022-06-19] MEDS ORDERED: fentaNYL citrate 100 MCG/2 ML VIAL ONE (14:12)
[2022-06-19] MEDS ORDERED: ONDANSETRON INJ 2 MG/ML 2 ML VIAL ONE (14:12)
[2022-06-19] MEDS ORDERED: DEXAMETHASONE SOD INJ 4 MG/ML VIAL ONE (14:12)
[2022-06-19] MEDS ORDERED: PROPOFOL IV EMULSION 10 MG/ML 20 ML VIAL IV ONE ×2 (14:12→14:41)
[2022-06-19] MEDS ORDERED: LIDOCAINE 2% MPF LOCAL 5 ML VIAL INFIL ONE (14:41)
[2022-06-19] MEDS ORDERED: ROCURONIUM BROMIDE 10 MG/ML 5 ML VIAL IV ONE (14:41)
--- NOTE | 2022-06-19 15:05 | Operative Report ---
Post Operative Report Pre & Post Diagnosis Operation Date: 06/19/22 08:20 Pre-Op Diagnosis: PANCREATITIS Post-Op Diagnosis: cbd sludge I identified the patient and participated in the time-out.: Yes Procedure Operation Date: 06/19/22 08:20 <No data on this case meets the specified criteria> Surgeon Kashif Chung MD Belt Machine Operator None Estimated Blood Loss 0 Findings See Below (Biliary sludge removed. Small duodenal polyp removed.) Specimens Duodenal polyp Description of Procedure EUS/ERCP I attest to the content of the Intraoperative Record and any orders documented therein. Any exceptions are noted below.
--- NOTE | 2022-06-19 15:12 | GI REPORT ---
Patient Name: Tonya Harrell Procedure Date: 06/19/2022 2:11 PM Date of : 1965 Admit Type: Inpatient Age: 56 Gender: Female Attending MD: Kashif Chung MD Procedure: Upper GI endoscopy Providers: Kashif Chung MD Referring MD: Jus Rodriguez Md Indications: Abdominal pain Medicines: General Anesthesia Complications: No immediate complications. Estimated Blood Loss: Estimated blood loss: none. Procedure: Pre-Anesthesia Assessment: - Prior to the procedure, a History and Physical was performed, and patient medications, allergies and sensitivities were reviewed. The patient's tolerance of previous anesthesia was reviewed. - The risks and benefits of the procedure and the sedation options and risks were discussed with the patient. All questions were answered and informed consent was obtained. - Patient identification and proposed procedure were verified prior to the procedure by the physician and the nurse. The procedure was verified in the procedure room. - Pre-procedure physical examination revealed no contraindications to sedation. After obtaining informed consent, the endoscope was passed under direct vision. Throughout the procedure, the patient's blood pressure, pulse, and oxygen saturations were monitored continuously. The Endoscope was introduced through the mouth, and advanced to the second part of duodenum. The upper GI endoscopy was accomplished without difficulty. The patient tolerated the procedure well. Findings: The examined esophagus was normal. The entire examined stomach was normal. The duodenal bulb and second portion of the duodenum were normal. Mild duodinitis seen. Impression: - Normal esophagus. - Normal stomach. - Normal duodenal bulb and second portion of the duodenum. Recommendation: - Perform an upper endoscopic ultrasound (UEUS). - PO PPI. Kashif Chung MD 06/19/2022 3:11:43 PM This report has been signed electronically. Note Initiated On: 06/19/2022 2:11 PM Number of Addenda: 0 I attest to the content of the Intraoperative Record and orders documented therein, exceptions below {[id number]}
--- NOTE | 2022-06-19 15:14 | GI REPORT ---
Patient Name: Tonya Harrell Procedure Date: 06/19/2022 2:13 PM Date of : 1965 Admit Type: Inpatient Age: 56 Gender: Female Attending MD: Kashif Chung MD Procedure: Upper EUS Providers: Kashif Chung MD Referring MD: Jus Rodriguez Md Indications: Suspected choledocholithiasis, Acute pancreatitis Medicines: General Anesthesia Complications: No immediate complications. Estimated Blood Loss: Estimated blood loss: none. Procedure: Pre-Anesthesia Assessment: - Prior to the procedure, a History and Physical was performed, and patient medications, allergies and sensitivities were reviewed. The patient's tolerance of previous anesthesia was reviewed. - The risks and benefits of the procedure and the sedation options and risks were discussed with the patient. All questions were answered and informed consent was obtained. - Patient identification and proposed procedure were verified prior to the procedure by the physician and the nurse. The procedure was verified in the procedure room. - Pre-procedure physical examination revealed no contraindications to sedation. After obtaining informed consent, the endoscope was passed under direct vision. Throughout the procedure, the patient's blood pressure, pulse, and oxygen saturations were monitored continuously. The Endosonoscope was introduced through the mouth, and advanced to the second part of duodenum. The upper EUS was accomplished without difficulty. The patient tolerated the procedure well. Findings: ENDOSONOGRAPHIC FINDING: : There was no sign of significant endosonographic abnormality in the ampulla. No masses were identified. There was dilation in the common bile duct which measured up to 8 mm. A small amount of hyperechoic material consistent with sludge was visualized endosonographically in the common bile duct. Evidence of a previous cholecystectomy was identified endosonographically. There was no sign of significant endosonographic abnormality in the visualized portion of the liver. Homogeneous parenchyma was identified. There was no sign of significant endosonographic abnormality in the entire pancreas. The pancreatic duct measured up to 2 mm in diameter. There was no sign of significant endosonographic abnormality in the visualized portion of the left adrenal gland. There was no sign of significant endosonographic abnormality involving the celiac trunk. Impression: - There was no sign of significant pathology in the ampulla. - There was dilation in the common bile duct which measured up to 8 mm. - Hyperechoic material consistent with sludge was visualized endosonographically in the common bile duct. - Evidence of a cholecystectomy. - There was no evidence of significant pathology in the visualized portion of the liver. - There was no sign of significant pathology in the entire pancreas. - Endosonographic images of the left adrenal gland were unremarkable. - The celiac trunk was endosonographically normal. Recommendation: - Perform an ERCP today. Kashif Chung MD 06/19/2022 3:13:52 PM This report has been signed electronically. Note Initiated On: 06/19/2022 2:13 PM Number of Addenda: 0 I attest to the content of the Intraoperative Record and orders documented therein, exceptions below {[id number]}
--- NOTE | 2022-06-19 15:20 | GI REPORT ---
Patient Name: Tonya Harrell Procedure Date: 06/19/2022 2:15 PM Date of : 1965 Admit Type: Inpatient Age: 56 Gender: Female Attending MD: Kashif Chung MD Procedure: ERCP Providers: Kashif Chung MD Referring MD: Jus Rodriguez Md Indications: Biliary sludge Medicines: General Anesthesia Complications: No immediate complications. Estimated Blood Loss: Estimated blood loss: none. Procedure: Pre-Anesthesia Assessment: - Prior to the procedure, a History and Physical was performed, and patient medications, allergies and sensitivities were reviewed. The patient's tolerance of previous anesthesia was reviewed. - The risks and benefits of the procedure and the sedation options and risks were discussed with the patient. All questions were answered and informed consent was obtained. - Patient identification and proposed procedure were verified prior to the procedure by the physician and the nurse. The procedure was verified in the procedure room. - Pre-procedure physical examination revealed no contraindications to sedation. After obtaining informed consent, the scope was passed under direct vision. Throughout the procedure, the patient's blood pressure, pulse, and oxygen saturations were monitored continuously. The Duodenoscope was introduced through the mouth, and advanced to the duodenum and used to inject contrast into the bile duct. The ERCP was accomplished without difficulty. The patient tolerated the procedure well. Findings: A loop sewer film of the abdomen was obtained. Surgical clips, consistent with a previous cholecystectomy, were seen in the area of the right upper quadrant of the abdomen. The esophagus was successfully intubated under direct vision. The scope was advanced to a normal major papilla in the descending duodenum without detailed examination of the pharynx, larynx and associated structures, and upper GI tract. The upper GI tract was grossly normal. A 0.025 inch x 270 cm angled Visiglide wire was passed into the biliary tree. The short-nosed traction sphincterotome was passed over the guidewire and the bile duct was then deeply cannulated. Contrast was injected. I personally interpreted the bile duct images. Ductal flow of contrast was adequate. Image quality was adequate. Contrast extended to the main bile duct. Opacification of the entire biliary tree except for the gallbladder was successful. The maximum diameter of the ducts was 8 mm. Biliary sphincterotomy was made with a monofilament traction (standard) sphincterotome using ERBE electrocautery. There was no post-sphincterotomy bleeding. The biliary tree was swept with an 11.5 mm balloon starting at the bifurcation. Sludge was swept from the duct. Indomethacin 100 mg was given via suppository to decrease the risk of post-ERCP pancreatitis (PEP). There was a 5 mm submucosal nodule to the left of the Ampulla. The nodule was removed with a cold snare. The polypectomy was performed through the ERCP scope. Resection and retrieval were complete. Verification of patient identification for the specimen was done by the physician and nurse using the patient's name and date. Impression: - A biliary sphincterotomy was performed. - The biliary tree was swept and sludge was found. Recommendation: - [facility]. - Await path results. Kashif Chung MD 06/19/2022 3:19:41 PM This report has been signed electronically. Note Initiated On: 06/19/2022 2:15 PM Number of Addenda: 0 I attest to the content of the Intraoperative Record and orders documented therein, exceptions below {[id number]}
--- NOTE | 2022-06-19 15:36 | Fluoroscopy Report ---
FL ERCP biliary ductal CLINICAL HISTORY: for ercp TECHNIQUE: 7 views were obtained with the C-arm in the OR with the above procedure. Total fluoroscopy time was 16 seconds. Comparison: Comparison is made to CT abdomen pelvis 06/18/2022 and right upper quadrant ultrasound FINDINGS/IMPRESSION: Intraoperative images were obtained of ERCP Please correlate with intraoperative fluoroscopy and operative report. ACT 112: Negative or not required by law. Electronically signed by: Cameron Mead M.D. 06/19/2022 3:35 PM
--- NOTE | 2022-06-19 15:40 | Electrocardiogram Report ---
Test Reason : Blood Pressure : / mmHG Vent. Rate : 076 BPM Atrial Rate : 076 BPM P-R Int : 138 ms QRS Dur : 090 ms QT Int : 418 ms P-R-T Axes : 077 035 076 degrees QTc Int : 470 ms Normal sinus rhythm Normal ECG No previous ECGs available Confirmed by Raghu Nolasco ([id number]) on 06/19/2022 3:39:53 PM Referred By: REFERRED SELF Confirmed By:Raghu Nolasco
--- NOTE | 2022-06-19 15:52 | Anesthesiology Progress Note ---
Date of Service June 19, 2022 Anesthesia Post Procedure Vital Signs Vital Signs: Temp Pulse Pulse Pulse Resp BP BP 06/19/22 15:30 63 20 06/19/22 15:40 69 20 06/19/22 15:20 72 18 06/19/22 15:18 96.8 F L 80 16 06/19/22 13:26 98.4 F 80 18 06/19/22 07:05 98.8 F 66 16 06/18/22 20:55 98.6 F 78 16 111/65 06/18/22 20:30 79 20 108/64 06/18/22 20:00 78 15 104/67 06/18/22 18:40 71 19 109/67 06/18/22 18:00 74 12 119/76 06/18/22 17:30 82 17 104/69 06/18/22 17:25 76 16 108/70 06/18/22 16:00 72 13 117/77 BP Pulse Ox O2 Del Method O2 Flow Rate 06/19/22 15:30 122/78 100 Room Air 06/19/22 15:40 109/71 99 Room Air 06/19/22 15:20 117/71 100 Oxymask 6 06/19/22 15:18 124/68 100 Oxymask 6 06/19/22 13:26 114/67 99 Room Air 06/19/22 07:05 101/64 98 Room Air 06/18/22 20:55 97 Room Air 06/18/22 20:30 99 06/18/22 20:00 97 06/18/22 18:40 100 06/18/22 18:00 100 06/18/22 17:30 98 06/18/22 17:25 100 06/18/22 16:00 100 Transfer of Care Handoff Completed per policy Notes Mental Status: alert / awake / arousable and participated in evaluation Patient Amnestic to Procedure: Yes Nausea / Vomiting: adequately controlled Pain: adequately controlled Airway Patency, RR, SpO2: stable & adequate BP & HR: stable & adequate Hydration State: stable & adequate Anesthetic Complications: no major complications apparent and Pt Satisfied with anesthetic care
[2022-06-20] MEDS: LACTATED RINGER'S 1,000 ML IV SCH ×2 (00:05→08:44)
[2022-06-20 09:06] LABS: Albumin Globulin Ratio 1.7 (0.9-2); Albumin Level 3.9 gm/dl (3.4-5.0); BUN Creatinine Ratio 18.8 (10-20); Bilirubin,Total 0.5 mg/dl (0.2-1.0); Calcium 8.8 mg/dl (8.5-10.1); Creatinine Clr Calc Pharmacy 65.7 ml/min; Est GFR (African American) 88.2 ml/min; Est GFR (Non-African American) 76.1 ml/min; Globulin 2.3 gm/dl (2.5-4.0); Potassium 3.9 mmol/L (3.5-5.1); Total Protein 6.2 gm/dl (6.0-8.3)
[2022-06-20 11:57] LABS: HBSAG NON-REACTIVE (NON-REACTIVE); Hepatitis A Antibody IgM NON-REACTIVE (NON-REACTIVE); Hepatitis B Core Antibody IgM NON-REACTIVE (NON-REACTIVE)
--- NOTE | 2022-06-20 12:53 | Discharge Summary ---
Date of Service June 20, 2022 Admission HPI Per Admitting Provider Tonya Harrell is a 56-year-old female with past medical history significant for depression, s/p cholecystectomy who presents today with abdominal pain. Yesterday afternoon, she began experiencing upper abdominal/epigastric pain that radiated to her back, at its worst was 10/10 and stabbing in nature. It is associated with nausea, no vomiting, and minimal diarrhea yesterday that was kelly colored. No fever or chills. She has been able to eat over the past 24 hours, but does note that it makes her pain worse after doing so. Pain has waxed and waned over the course of the past day, she saw her PCP today who sent her to the ED for further evaluation with concern for pancreatitis. She does not smoke or use recreational drugs, and drinks alcohol very rarely, less than once per month. She has never had pancreatitis before. Upon presentation, vital signs are stable and within normal limits. Labs remarkable for AST 243, ALT 185, alk phos 106, lipase 479, all acutely elevated. Without white count, renal function at baseline, no electrolyte abnormalities, urine does not appear infected. CT of the abdomen and pelvis shows she had a prior cholecystectomy, mild central intrahepatic bile duct dilatation, CBD measuring 6 mm, there is a 3 mm hypodense lesion on the right hepatic lobe, 1.5 mm cyst on left kidney, no bowel wall thickening or obstruction, appendix appears normal. Principal Diagnosis 1. Acute pancreatitis secondary to biliary sludge and duodenal polyp 2. Transaminitis d/t #1-improving Discharge Exam GENERAL: 56 yo Well-developed, well-nourished WF. NAD. LUNGS: Clear to auscultation bilaterally. No W/R/R. CARDIOVASCULAR: Regular rate and rhythm. ABDOMEN: Soft, nontender, non-distended. No palpable masses. BS normoactive x 4 quad. EXTREMITIES: No edema. Non-tender. Peripheral pulses +2/4. NEUROLOGIC: A&O x3. Nonfocal PSYCHIATRIC: Cooperative. Appropriate mood and affect. SKIN: Warm, dry, intact. No rashes or lesions. Discharge Data Allergies Allergy/AdvReac Type Severity Reaction Status Date / Time Sulfa (Sulfonamide AdvReac Mild Stomach Verified 06/18/22 10:12 Antibiotics) upset Consultations 06/18/22 17:58 ED Decision to Admit Stat 06/18/22 21:11 Consult Gastroenterology Routine Procedures Performed Operation Date: 06/19/22 08:20 Actual Procedures s Esophagogastroduodenoscopy - Kashif Chung MD s Endoscopic Ultrasonography Upper - Kashif Chung MD p Endoscopic Retrograde Cholangiopancreato - Kashif Chung MD Ordered Studies Abdomen/Pelvis CT 06/18/22 15:[address] WITH IV CONTRAST CT DOSE: 268.17 mGy.cm HISTORY: Upper abd pain, elevated LFTs/lipase, prior ravi TECHNIQUE: Multiaxial CT images of the abdomen and pelvis were performed following the use of intravenous contrast. A dose lowering technique was utilized adhering to the principles of ALARA. COMPARISON STUDY: None. FINDINGS: The lung bases are clear. No pneumoperitoneum. No pneumatosis. No fractures within the visualized osseous structures. Prior cholecystectomy. This likely accounts for the mild central intrahepatic bile duct dilatation. Normal caliber common bile duct measuring up to 6 mm. A 3 mm hypodense lesion within the right hepatic lobe is technically too small to characterize but favors a cyst. The main portal vein is patent. The pancreas, spleen, and adrenal glands are unremarkable. There is a 1.5 cm cyst within the left kidney. Normal right kidney. No hydronephrosis. No retroperitoneal lymphadenopathy. There is a left circumaortic renal vein. The bladder is not well-distended but appears un remarkable. The uterus and bilateral adnexa are within normal limits. No significant pelvic free fluid. Moderate well-formed stool within the colon. No bowel wall thickening or obstruction. Normal appendix. IMPRESSION: 1. Prior cholecystectomy. This likely accounts for the mild central intrahepatic bile duct dilatation. 2. No bowel wall thickening or obstruction. 3. Normal appendix. 4. No hydronephrosis. ACT 112: Negative or not required by law. Electronically signed by: Tao Rios M.D. 06/18/2022 4:30 PM Liver Ultrasound 06/18/22 17:05 . ABDOMINAL ULTRASOUND, RIGHT UPPER QUADRANT HISTORY: elevated lfts, prior cholecystectomy. COMPARISON: Abdomen and pelvis CT 06/18/2022. FINDINGS: Pancreas: The pancreas demonstrates a normal echotexture. Liver: Unremarkable. Gallbladder: The gallbladder is surgically absent. CBD: 6 mm. Right kidney: No hydronephrosis. IMPRESSION: Prior cholecystectomy. Otherwise, no significant abnormality identified within the right upper quadrant. ACT 112: Negative or not required by law. Electronically signed by: Tao Rios M.D. 06/18/2022 7:13 PM Endo Retro Cholangiopancreatogram 06/19/22 10:06 [place] ERCP biliary ductal CLINICAL HISTORY: for ercp TECHNIQUE: 7 views were obtained with the C-arm in the OR with the above procedure. Total fluoroscopy time was 16 seconds. Comparison: Comparison is made to CT abdomen pelvis 06/18/2022 and right upper quadrant ultrasound 06/18/2022 FINDINGS/IMPRESSION: Intraoperative images were obtained of ERCP Please correlate with intraoperative fluoroscopy and operative report. ACT 112: Negative or not required by law. Electronically signed by: Cameron Mead M.D. 06/19/2022 3:35 PM Hospital Course (1) Acute pancreatitis: - CTAP: S/p cholecystectomy, mild central intrahepatic duct dilation, small lesion noted on liver consistent with cyst. - RUQ us indicates prior cholecystectomy, no other acute findings noted - No history of alcohol use, is s/p cholecystectomy, only mildly hypercalcemic. Suspect secondary to gallstone. - GI consulted, appreciate recommendations and assistance. - LRs 200 cc/hr x 1 L then decrease rate to 125cc/hr. - Continue NPO status with plans for early refeed as able - Appreciate GI input, underwent ERCP with Dr. Chung on 06/19, found to have duodenal polyp and biliary sludge-polyp removed, biliary tree swept - Diet following procedure ordered in form of clear liquids, pt tolerating - Repeat lipase this AM is 110, lfts downtrending - diet advanced for lunch (2) Elevated LFTs: - As above with interval increase since 06/18 labs (3) Depression: - Holding PO meds. - On Wellbutrin, fluvoxamine, seroquel at home, can resume upon dc Plan Patient is medically and hemodynamically stable for discharge home today. Advise pcp follow up in 1 week. Repeat labs to ensure LFTs have normalized, will cc her PCP for results. Plan d/w Dr. Rodriguez who has also seen and evaluated this patient prior to discharge and agrees with aforementioned. Total Time Total Time Spent Total Time Spent (In Minutes): >30 minutes Discharge Plan Discharge Items Patient Disposition: Home - Self-Care Reason For Visit: PANCREATITIS Discharge Diagnosis: inflammation of pancreas, improved Activity: Resume your previous activity Non-emergency contact: Primary Care Provider Call non-emergency contact if: you have any medication questions Follow-up/Referrals: Amira Mancia CRNP [Primary Care Provider] - Diet: Low Fiber and Low Fat Ambulatory Orders: Comprehensive Metabolic Panel (Routine) Timeframe: 1 Week Location: Determined by Patient Ordered By: Arelis Laurent Addtl Attending Provider Instructions: You were hospitalized due to inflammation of your pancreas. This is likely due to a combination of a small polyp in the duodenum (first part of the small intestine) in addition to some sludge that was in the ducts that blocked drainage from your pancreas. The treatment for this is to rest the bowel (as we discussed) and provide pain control, hydration, and anti-nausea medications. You were taken for a procedure on 06/[address] Chung where he was able to clear out the sludge and remove the polyp. The polyp will be sent for testing and the office will be in touch with you regarding the results. Your liver function tests are improving following this procedure. You should follow up with your primary care provider within 1 week of discharge. I have ordered you repeat labs to ensure that your liver function tests continue to normalize. The results will be sent to your primary care provider for review. Your blood pressure has been running on the low side, so I would not resume your Spironolactone upon discharge as this medication can affect your blood pressure. You can discuss resuming it at your primary care follow up appointment. If you have any questions or concerns following your discharge, feel free to contact the nonemergency number listed on your discharge paperwork. In the event of a medical emergency. Pending Studies at Discharge: No Stand-Alone Forms: My [facility] [employer], Smoking Cessation Medications and DC Order Prescriptions: Continued bupropion HCl 150 mg tablet sustained-release 12 hr 150 mg PO BID Qty: 180 3RF quetiapine 100 mg tablet 100 mg PO DAILY Qty: 90 3RF calcium carbonate-vit D3-min 600 mg calcium- 400 unit tablet 1 tab PO BID Qty: 60 0RF fluvoxamine 50 mg tablet 50 mg PO DAILY Qty: 90 2RF Discontinued spironolactone 100 mg tablet 100 mg PO DAILY Qty: 90 2RF Discharge Orders: Discharge Order (Routine); Ordered 06/20/22 Ordered By: Arelis Laurent Admission Data Admit Date/Time: 06/18/22 17:59 Attending Provider: Jus Rodriguez Admit Provider: Jarrod Nails Primary Care Provider: Amira Mancia Other Providers: Kashif Chung ; Jarrod Nails Other Interventions: Discharge Summary Assessment (RN) Last Done: 06/20/22 13:21 Supervising Physician Co-Signing Physician Notes I supervised Arelis Laurent PA-C on the care of this patient. I interviewed and examined the patient independently of her. The plan is as written in her note except for any following changes/exceptions: None 56yo F w/ no pertinent PMH who presents with pancreatitis presumed due to a biliary polyp. S/p ERCP with [facility]. Eating lunch on my interview, feels well. Ready for discharge. Coding Level of Care Code D/C DAY MANAGEMENT >30 MINS Diagnoses Acute pancreatitis K85.90 Elevated LFTs R79.89 Depression F32.A
[2022-06-22 17:02] LABS: Alpha 1 Antitrypsin 135 mg/dL (83-199); Anti Mitochondrial Antibody NEGATIVE (NEGATIVE); Anti Nuclear Antibody Screen NEGATIVE (NEGATIVE); Ceruloplasmin 24 mg/dL (18-53); Smooth Muscle Antibody NEGATIVE (NEGATIVE)
== END 2022-06-20 14:10 | disposition home or self-care (01) | DRG 439 ==
LOC: ED 13:01 → SUATTDRO 17:59 → 3N 17:59